=== PATIENT | female | born 1990 | race Caucasian/White ===

== ENCOUNTER 2022-06-10 14:40 | Emergency (ER) | payer OTHER ==
[~2022-06-10] VITALS: Ht 165.1 cm; Wt 79.4 kg
[2022-06-10 14:56] VITALS: BP 119/81
--- NOTE | 2022-06-10 15:17 | NUR ---
31/F WALKED IN C/O LEFT EAR ACHE X 2 DAYS. PT WAS SEEN AT [facility] YESTERDAY AND WAS TOLD EAR DRUM WAS INFLAMMED. PT WAS ADVISED TO VISIT ED IF PAIN GETTING WORSE. PMH: ANXIETY, DEPRESSION, PTSD
[2022-06-10] MEDS ORDERED: KETOROLAC 30 MG/ML VIAL IM ONE (15:55)
[2022-06-10] MEDS ORDERED: CIPR7.5S OT (16:50)
[2022-06-10] MEDS ORDERED: KETO10TA2 PO (16:50)
== END 2022-06-10 16:52 | disposition home or self-care (01) ==
LOC: MED 14:40
DX: H60.92 Unspecified otitis externa, left ear (principal); R03.0 Elevated blood-pressure reading, without diagnosis of hypertension; Z79.899 Other long term (current) drug therapy
CPT/HCPCS: 81025; 96372; 99283; J1885